=== PATIENT | female | born 1935 | race Caucasian/White ===

== ENCOUNTER 2017-01-06 10:44 | Day surgery (SDC) | payer MEDICARE ==
[~2017-01-06] VITALS: Ht 154.9 cm; Wt 70.9 kg
[2017-01-06 11:34] LABS: BASOPHILS 0.2 % (0.0-2.0); EOSINOPHILS 1.1 % (0-7); HEMATOCRIT 38.4 % (36.0-48.0); HEMOGLOBIN 13.4 g/dL (12-16); LYMPHOCYTES 43.8 % (15-50); MCH 34.4 pg (26.0-34.0); MCHC 34.9 g/dL (31.0-37.0); MCV 98.7 fL (80.0-100.0); MEAN PLATELET VOLUME 9.7 fL (7.4-10.4); MONOCYTES 7.2 % (2-11); NEUTROPHILS 47.7 % (40-80); RBC 3.89 10x6/uL (4.00-5.40); WBC 4.6 10x3/uL (4.8-10.8)
[2017-01-06 11:40] LABS: PLATELET COUNT 198 10x3/uL (130-400)
[2017-01-06 11:43] LABS: ANION GAP 10.8 mmol/L (8-16); CALCIUM 9.4 mg/dL (8.5-10.1); CARBON DIOXIDE 29.9 mmol/L (21.0-32.0); CREATININE - SERUM 0.9 mg/dL (0.6-1.3); POTASSIUM - SERUM 3.7 mmol/L (3.5-5.1)
[2017-01-06] MEDS ORDERED: SYNTHROID75 MCG PO (11:44)
[2017-01-06] MEDS ORDERED: VITAMIN D31000 UNI2 PO (11:45)
[2017-01-06 11:46] VITALS: BP 185/73; Ht 154.9 cm; Wt 70.9 kg
--- NOTE | 2017-01-06 14:41 | NUR ---
1410-RECEIVED PT FROM GI LAB. PT AWAKE AND ALERT NOT PASSING GAS AT THIS TIME. VSS NO DISTRESS FAMILY AT BEDSIDE WILL CONTINUE TO MONITOR
--- NOTE | 2017-01-06 14:44 | NUR ---
7485-DR MATTA IN ROOM SPEAKING WITH PATIENT
--- NOTE | 2017-01-25 12:04 | OP ---
PATIENT NAME: ASHISH ALEXANDER MEDICAL RECORD: [id number] :37 LOCATION:[facility] ADMISSION DATE: SURGEON: SRAVANTHI MATTA DO DATE OF OPERATION: 01/06/2017 PROCEDURE: Colonoscopy. ENDOSCOPIST: Sravanthi Matta DO. SCOPE: Olympus video colonoscope. MEDICATIONS: A 600 mg propofol IV and lidocaine 100 mg IV by TIVA per anesthesia. INDICATION FOR PROCEDURE: History of polyps. FINDINGS: Informed consent was given. The patient was made comfortable with the above medications. After reaching an adequate level of sedation by slow IV push, the colonoscope was advanced through the anus to the terminal ileum. The patient was noted to have multiple mixed diverticula throughout the ascending, transverse, descending, and sigmoid colon. There was also a mixed flat and sessile polyp in the cecum, which measured approximately 8 mm in size. Saline injection was attempted at the base of the polyp, but the polyp did not lift. This is concerning for invasive adenoma. After the polyp would not lift, 2 cold forcep biopsies were taken from the polyp followed by hot forceps cautery polypectomy. After this maneuver was performed, there was a minimal amount of bleeding, which was not stopping on its own. For hemostasis and a single Olympus, endoclip was placed over the site with successful hemostasis. The scope was then withdrawn. There were no other polyps or findings outside the diverticula and the polyp. Withdrawal time was greater than 10 minutes. The patient tolerated the procedure well and there were no complications. IMPRESSION: 1. Severe diverticulosis of all segments of the colon. 2. Single mixed sessile and flat adenomatous polyp in the cecum measuring 8 mm, which would not lift with saline. Biopsies and polypectomy performed followed by hemostasis with a single endoclip. RECOMMENDATIONS: Ultimate recommendations will depend on pathology of polyp. If this is a high-grade dysplastic lesion, I would recommend surgery based on the fact that this polyp would not lift and this is likely invasive. If there is no high grade dysplasia, I would recommend a repeat colonoscopy in 6 months based on the fact that this was a piecemeal resection for further inspection and evaluation of the polyp. TRANSINT:[id number] Voice Confirmation ID: [id number] DOCUMENT ID: [id number] OPERATIVE REPORT [id number] ASHISH ALEXANDER SRAVANTHI MATTA DO at 1204 CC: [id number] DICTATION DATE: 01/06/17 1359 PUBLIC SERVICE REPRESENTATIVE: 01/06/[address] [facility] 01/06/17 [facility] [address] [place] [address]
== END 2017-01-06 15:15 | disposition home or self-care (01) ==
LOC: D.OPS 10:44
PROVIDERS: Anesthesiology
DX: D12.0 Benign neoplasm of cecum (principal); K57.30 Diverticulosis of large intestine without perforation or abscess without bleeding; Z86.010 Personal history of colon polyps

== ENCOUNTER 2017-07-11 07:50 | Day surgery (SDC) | payer MEDICARE ==
[~2017-07-11] VITALS: Ht 154.9 cm; Wt 72.7 kg
[~2017-07-11 07:50] MED LIST: SYNTHROID75 MCG PO; VITAMIN D31000 UNI2 PO
[2017-07-11 09:52] VITALS: BP 178/77; Ht 154.9 cm; Wt 72.7 kg
[2017-07-11 10:04] LABS: HEMATOCRIT 38.5 % (36.0-48.0); HEMOGLOBIN 13.3 g/dL (12-16); MCH 35.2 pg (26.0-34.0); MCHC 34.5 g/dL (31.0-37.0); MCV 101.9 fL (80.0-100.0); MEAN PLATELET VOLUME 9.6 fL (7.4-10.4); RBC 3.78 10x6/uL (4.00-5.40); RDW 13.5 % (11.5-14.5); WBC 4.9 10x3/uL (4.8-10.8)
--- NOTE | 2017-07-12 07:19 | OP ---
PATIENT NAME: ASHISH ALEXANDER MEDICAL RECORD: [id number] :37 LOCATION:[facility] ADMISSION DATE: SURGEON: SRAVANTHI MATTA DO DATE OF OPERATION: 07/11/2017 PROCEDURE: Colonoscopy with polypectomy. INDICATIONS FOR PROCEDURE: History of colon polyps with a family history of GI tract cancer of the colon in her daughter. Her last colonoscopy was performed in December of 2016 with tubular adenomatous polyps removed, which had a high risk features. SCOPE: Olympus video pediatric colonoscope. MEDICATIONS: Propofol 400 mg IV per anesthesia. WITHDRAWAL TIME: 23 minutes. ESTIMATED BLOOD LOSS: Minimal. COMPLICATIONS: None. FINDINGS: Informed consent was given. The patient was made comfortable with the above medication. After reaching an adequate level of sedation by slow IV push, the patient was placed on her left side. A digital rectal examination was performed and was normal. The endoscope was then advanced under direct visualization through the rectum to the cecum with visualization of the appendiceal orifice and ileocecal valve. The scope was slowly withdrawn and mucosa was carefully examined. Prep quality was good. In the cecum, there were 2 separate polyps. One was a small benign appearing polyp located at the appendiceal orifice. It was removed using hot forceps. Also, in the cecum was a larger flat lesion measuring approximately 8-9 mm in diameter. An injection was attempted submucosally, but the polyp did not lift well. A hot snare was then used to remove the polyp in piecemeal fashion. Remaining tissue was ablated. In the ascending colon was a third polyp, which was benign appearing sessile lesion measuring approximately 6 mm in diameter, which was removed in 1 piece using hot snare. There was evidence of severe diverticulosis throughout the entire colon. Retroflexion was performed in the rectum with a normal appearance. The scope was withdrawn from the patient. The patient tolerated the procedure well and there were no complications. IMPRESSION: 1. Three polyps as described above, removed using hot forceps and hot snare. 2. Severe diverticulosis of the entire colon. PLAN AND RECOMMENDATIONS: 1. Discharge home when recovery parameters are met. 2. Follow up biopsy specimen results. 3. High fiber diet. 4. Continue current medications. 5. Recall colonoscopy in 1 year for continued surveillance. That could be considered the patient's last colonoscopy at that time pending findings. TRANSINT:[id number] Voice Confirmation ID: [id number] DOCUMENT ID: [id number] OPERATIVE REPORT [id number] ASHISH ALEXANDER NATHAN A DO at 0719 CC: [id number] DICTATION DATE: 07/11/17 1159 AS400 PROGRAMMER ANALYST: 07/11/171956 [facility] 07/11/17 [place] [id number] [place] [id number]
== END 2017-07-11 13:05 | disposition home or self-care (01) ==
LOC: D.OPS 07:50
PROVIDERS: Anesthesiology
DX: D12.0 Benign neoplasm of cecum (principal); D12.2 Benign neoplasm of ascending colon; K57.30 Diverticulosis of large intestine without perforation or abscess without bleeding; E03.9 Hypothyroidism, unspecified; Z01.812 Encounter for preprocedural laboratory examination

== ENCOUNTER → 2018-05-24 18:21 | Outpatient (CLI) | payer MEDICARE ==
[2017-07-11 09:52] VITALS: BMI 30.3
== END | disposition home or self-care (01) ==
LOC: D.MAMMO 14:45
DX: Z12.31 Encounter for screening mammogram for malignant neoplasm of breast (principal)

== ENCOUNTER → 2018-06-29 22:25 | Outpatient (CLI) | payer MEDICARE ==
[2017-07-11 09:52] VITALS: BMI 30.3
== END | disposition home or self-care (01) ==
LOC: D.MAMMO 14:00
DX: R92.8 Other abnormal and inconclusive findings on diagnostic imaging of breast (principal)